=== PATIENT | female | born 1935 | race Caucasian/White ===

== ENCOUNTER 2021-12-07 09:52 | Outpatient (CLI) | payer MEDICARE, OTHER, SELFPAY ==
[2021-12-07 13:46] LABS: Albumin* 4.5 g/dL (3.3-5.0); Chloride* 102 mmol/L (96-114)
[2021-12-07 13:47] LABS: Sodium* 142 mmol/L (135-149)
[2021-12-07 13:49] LABS: Aspartate Amino Transferase* 27 U/L (12-35); Bilirubin Total* 0.5 mg/dL (0.1-1.5); Blood Urea Nitrogen* 16 mg/dL (7-30); Carbon Dioxide* 29 mmol/L (20-32); Cholesterol* 196 mg/dL (90-199); Creatinine* 0.8 mg/dL (0.5-1.5); Estimated Glomerular Filt Rate 73 ml/min; Glucose* 83 mg/dL (60-115); Total Protein* 7.6 g/dL (6.0-8.3)
[2021-12-07 13:50] LABS: Alanine Aminotransferase* 13 U/L (4-35); Alkaline Phosphatase* 73 U/L (40-150); Calcium* 9.4 mg/dL (8.4-10.6); HDL Cholesterol* 34 mg/dL (>=50); LDL Cholesterol Calculated 100 mg/dL (<100); Triglycerides* 310 mg/dL (40-149)
== END 2021-12-07 09:53 | disposition home or self-care (01) ==
PROVIDERS: PCP Physician Assistant Medical; Visit Provider Physician Assistant Medical
DX: Z00.00 Encounter for general adult medical examination without abnormal findings (principal); E78.5 Hyperlipidemia, unspecified; I10 Essential (primary) hypertension
CPT/HCPCS: 80053; 80061

== ENCOUNTER 2022-01-17 08:34 | Outpatient (CLI) | payer MEDICARE, OTHER, SELFPAY ==
--- OUTSIDE RECORDS SUMMARY | 2022-01-17 08:36 | XMS_ITS | Clinical Summary ---
:1935 Author Organization [facility] [place] [address] Care Team Providers Name Role Phone Unknown, Doctor Primary Care Provider Unavailable Allergies Active Allergy Reactions Severity Noted Date Comments Penicillins 06/12/2005 Medications Medication Sig Dispensed Refills Start Date End Date Status ASPIRIN 325 MG ORAL TAB one qd ? 0 04/16/1998 Active VITAMIN E 400 UNIT CAP 1 tab daily 0 08/25/2005 Active GEMFIBROZIL 600 MG TAB take twice 60 1 04/05/2006 Active daily HYDROCHLOROTHIAZIDE 25 MG i po qd 90 1 05/01/2006 Active TAB ATENOLOL 50 MG Take one tab 90 1 05/01/2006 A ctive TABIndications: Essential po qd hypertension, benign fenofibrate Take 1 tablet 0 04/22/2009 Act dariusz nanocrystallized (TRICOR) by mouth once 48 mg tablet daily with a meal. atorvastatin (LIPITOR) 10 0 04/16/2017 Active mg tablet Niacin-Inositol 400 mg Take by 0 05/15/2017 Active niacin (500 mg) cap mouth. Active Problems Problem Noted Date Hyperopia of both eyes with astigmatism and presbyopia 05/15/2017 Cortical senile cataract 12/11/2005 Nonexudative senile macular degeneration of retina Overview: R COUGH DUE TO SANTINO INHIBITORS 07/01/2002 LUMBAGO 03/30/2000 HYPERTENSION, BENIGN ESSENTIAL 11/08/1999 STATE, FEMALE CLIMACTERIC 11/08/1999 HYPERCHOLESTEROLEMIA, PURE 11/08/1999 Immunizations Name Administration Dates Next Due Influenza, IIV3 (Age >=3 years) 01/22/2004, 03/22/2001 Td (Age >=7 Years) 06/09/2004 Family History Medical History Relation Name Comments Genetic Other Mother - of stroke -1989~Father at 92 - 1991~Mother hype rtension~Sibling hypertension~no breast cancer Relation Name Status Comments Other Social History Tobacco Use Types Packs/Day Years Used Date Former Smoker 0 Smokeless Tobacco: Never Used Comments: Pt quit many years ago Alcohol Use Standard Drinks/Week Comments Not Asked 0 (1 standard drink = 0.6 oz pure alcoho l) Alcoholic Drinks/day: 0 Sex Assigned at Date Recorded Not on file Obstetrics History Last Filed Vital Signs Vital Sign Reading Time Taken Comments Blood Pressure 163/85 05/15/2017 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 Pulse 65 05/15/2017 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 Temperature 37.1 ??C (98.7 ??F) 09/08/2004 12:00 AM CDT Respiratory Rate - - Oxygen Saturation - - Inhaled Oxygen Concentration - - Weight 66.7 kg (147 lb) 01/22/2006 1:15 PM CDT Height 162.6 cm (5' 4) 02/28/1999 12:00 AM EMULSIFICATION OPERATOR Body Mass Index 25.23 02/28/1999 12:00 AM EMULSIFICATION OPERATOR Plan of Treatment Health Maintenance Due Date Last Done Comments COVID-19 vaccine series (#1) 1935 Tdap 1946 Depression screening for age 12+ 1949 BMI (ht and wt on same day) for age 18+ 1955 Zoster (shingles) series for age 50+ (1 of 1987 2) DEXA/DXA scan for age 65+ 2002 Pneumococcal series for age 65+ (1 - PCV) 2002 Tetanus booster 06/09/2014 06/09/2004 Influenza for age 65+ 12/15/2021 01/22/2004, 03/22/2001 Results Not on filefrom Last 3 Months Insurance Payer Benefit Plan / Subscriber ID Effective Dates Phone Addre ss Type Group MEDICARE - PB MEDICARE PB [id number] 2002-Present ATTN : CLAIMS USE ONLY ONLY [address] [place] [address] PRIME [id number] 2011-Brooke [employer]/ [address] [place] [id number] 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
--- OUTSIDE RECORDS SUMMARY | 2022-01-17 08:36 | XMS_ITS ---
:1935 Author Care Team Providers Name Role Phone Lise Lopes Primary Care Provider Unavailable Allergies None recorded. Medications Name Status Start Date Stop Date ? ? atenolol 50 mg tablet Active ? Not availa ble atorvastatin 10 mg tablet Active ? Not av ailable cephalexin 500 mg capsule Active ? Not av ailable hydrochlorothiazide 25 mg tablet Active ? Not available mupirocin 2 % topical ointment Active ? N ot available Problems None recorded. Procedures None recorded. Results Lab Results None recorded. Past Encounters None recorded. Social History None recorded. Vaccine List None recorded. Plan of Care Reminders Provider Appointments None recorded. ? ? Lab None recorded. ? ? Referral None recorded. ? ? Procedures None recorded. ? ? Surgeries None recorded. ? ? Imaging None recorded. ? ? Vitals None recorded.
[2022-01-17 13:41] LABS: Chloride* 102 mmol/L (96-114); Potassium* 4.1 mmol/L (3.6-5.1); Sodium* 143 mmol/L (135-149)
[2022-01-17 13:44] LABS: Blood Urea Nitrogen* 21 mg/dL (7-30); Carbon Dioxide* 32 mmol/L (20-32); Cholesterol* 142 mg/dL (90-199); Creatinine* 0.8 mg/dL (0.5-1.5); Estimated Glomerular Filt Rate 73 ml/min; Glucose* 101 mg/dL (60-115)
[2022-01-17 13:45] LABS: Calcium* 9.7 mg/dL (8.4-10.6); HDL Cholesterol* 29 mg/dL (>=50); LDL Cholesterol Calculated 66 mg/dL (<100); Triglycerides* 233 mg/dL (40-149)
== END 2022-01-17 08:35 | disposition home or self-care (01) ==
PROVIDERS: PCP Physician Assistant Medical; Visit Provider Physician Assistant Medical
DX: E78.5 Hyperlipidemia, unspecified (principal); I10 Essential (primary) hypertension; E78.2 Mixed hyperlipidemia
CPT/HCPCS: 80048; 80061

== ENCOUNTER 2022-11-06 10:30 | Outpatient (CLI) | payer MEDICARE, OTHER, SELFPAY | END 2022-11-06 10:31 | disposition home or self-care (01) | LOC: NFLDREF 16:40 | PROVIDERS: PCP Physician Assistant Medical; Referring Provider Physician Assistant Medical; Visit Provider Physician Assistant Medical | DX: E78.5 Hyperlipidemia, unspecified (principal); I10 Essential (primary) hypertension | CPT/HCPCS: 80053; 80061 ==

== ENCOUNTER 2023-11-08 09:04 | Outpatient (CLI) | payer MEDICARE, OTHER, SELFPAY ==
--- OUTSIDE RECORDS SUMMARY | 2023-11-09 10:23 | XMS_ITS | Clinical Summary ---
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 0 04/16/1998 Active VITAMIN E 400 UNIT CAP 1 tab daily 0 08/25/2005 A ctive GEMFIBROZIL 600 MG TAB take twice daily 60 1 04/05/2006 Active HYDROCHLOROTHIAZIDE 25 MG TAB i po qd 90 1 05/01/2006 Active ATENOLOL 50 MG TABIndications:Essential hypertension, benign Take one tab po qd 90 1 05/01/2006 Active fenofibrate nanocrystallized (TRICOR) 48 mg tablet Take 1 tablet by mouth once daily with a meal. 0 04/22/2009 Active atorvastatin (LIPITOR) 10 mg tablet 04/16/2017 Active Niacin-Inositol 400 mg niacin (500 mg) cap Take by mouth. 0 05/15/2017 A ctive Active Problems Problem Noted Date Diagnosed Date Hyperopia of both eyes with astigmatism and pres byopia 05/15/2017 Cortical senile cataract 12/11/2005 Nonexudative senile macular degeneration of reti na 12/11/2005 Overview: R COUGH DUE TO SANTINO INHIBITORS 07/01/2002 LUMBAGO 03/30/2000 HYPERTENSION, BENIGN ESSENTIAL 11/08/1999 STATE, FEMALE CLIMACTERIC 11/08/1999 HYPERCHOLESTEROLEMIA, PURE 11/08/1999 Immunizations Name Administration Dates Next Due Influenza, IIV3 (Age >=3 years) 01/22/2004,03/22 Td (Age >=7 Years) 06/09/2004 Family History Medical History Relation Name Comments Genetic Other Mother - o f stroke -1989~Father at 92 - 1991~Mother hypertension~Sibling hypertension~no breast cancer Relation Name Status Comments Other Social History Tobacco Use Types Packs/Day Years Used Date Smoking Tobacco: Former Cigarettes Smokeless Tobacco: Never Comments:Pt quit many years ago Alcohol Use Standard Drinks/Week Comments Not Asked 0 (1 standard drink = 0.6 oz pur e alcohol) Alcoholic Drinks/day: 0 Sex and Gender Information Value Date Recorded Sex Assigned at Not on file Gender Identity Not on file Sexual Orientation Not on file Obstetrics History Last Filed Vital Signs Vital Sign Reading Time Taken Comments Blood Pressure 163/85 05/15/2017 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 Pulse 65 05/15/2017 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 Temperature 37.1 ??C (98.7 ??F) 09/08/2004 12:00 AM C DT Respiratory Rate - - Oxygen Saturation - - Inhaled Oxygen Concentration - - Weight 66.7 kg (147 lb) 01/22/2006 1:15 PM CDT Height 162.6 cm (5' 4) 02/28/1999 12:00 AM 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 PCP - General Family Practice 09/04/14
== END 2023-11-08 09:05 | disposition home or self-care (01) ==
LOC: NFLDREF 11-09 10:20
PROVIDERS: PCP Physician Assistant Medical; Referring Provider Physician Assistant Medical; Visit Provider Physician Assistant Medical
DX: I10 Essential (primary) hypertension (principal); E78.2 Mixed hyperlipidemia; E78.5 Hyperlipidemia, unspecified; C44.91 Basal cell carcinoma of skin, unspecified; C44.712 Basal cell carcinoma of skin of right lower limb, including hip; B07.8 Other viral warts
CPT/HCPCS: 80053; 80061; 84443

== ENCOUNTER 2024-10-21 11:39 | Outpatient (CLI) | payer MEDICARE, OTHER, SELFPAY | END 2024-10-21 11:40 | disposition home or self-care (01) | LOC: NFLDREF 10-23 16:36 | PROVIDERS: PCP Physician Assistant Medical; Referring Provider Physician Assistant Medical; Visit Provider Physician Assistant Medical | DX: I10 Essential (primary) hypertension (principal); E78.2 Mixed hyperlipidemia; M85.80 Other specified disorders of bone density and structure, unspecified site | CPT/HCPCS: 80053; 80061; 84443 ==